=== PATIENT | male | born 1995 | race Caucasian/White ===

== ENCOUNTER 2018-02-02 18:18 | Emergency (ER) | payer OTHER ==
[~2018-02-02] VITALS: Ht 175.3 cm; Wt 103.4 kg
[2018-02-02 18:20] VITALS: BP 149/67
[2018-02-02] MEDS ORDERED: AMPICILLIN/SULBACTAM 3 GM in NACL 0.9% 100 ML IV ONE (19:45)
[2018-02-02] MEDS ORDERED: NACL 0.9% 1,000 ML IV ONE (19:45)
[2018-02-02] MEDS ORDERED: KETOROLAC 30 MG/ML VIAL IVP ONE (19:45)
[2018-02-02] MEDS ORDERED: AMPICILLIN/SULBACTAM 3 GM VIAL ONE (19:57)
[2018-02-02] MEDS ORDERED: cefTRIAXone 2,000 MG in DEXTROSE 5% 100 ML IV ONE (20:10)
[2018-02-02] MEDS ORDERED: cefTRIAXone 2,000 MG VIAL ONE (20:22)
[2018-02-02 21:53] VITALS: BP 139/71
== END 2018-02-02 21:53 | disposition home or self-care (01) ==
LOC: MED 18:18
DX: J02.9 Acute pharyngitis, unspecified (principal)
CPT/HCPCS: 70450; 96365; 96375; 99284; J0295; J0696; J1885; J7060

== ENCOUNTER 2018-05-22 11:49 | Emergency (ER) | payer OTHER ==
[~2018-05-22] VITALS: Ht 175.3 cm; Wt 99.8 kg
[2018-05-22 11:59] VITALS: BP 141/73
--- NOTE | 2018-05-22 11:59 | NUR ---
PT ABULATED TO BED 9
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
--- NOTE | 2018-05-22 12:14 | NUR ---
DR SANDOVAL AT BEDSIDE
[2018-05-22 12:37] VITALS: BP 132/68
--- NOTE | 2018-05-22 12:37 | NUR ---
Patient discharged with v/s stable. Written and verbal after care instructions given and explained. Patient alert, oriented and verbalized understanding of instructions. Ambulatory with steady gait. All questions addressed prior to discharge. ID band removed. Patient advised to follow up with PMD. Rx of KEFLEX, BACITRACIN (OTC) given. Patient educated on indication of medication including possible reaction and side effects. Opportunity to ask questions provided and answered.
== END 2018-05-22 12:37 | disposition home or self-care (01) ==
LOC: MED 11:49
DX: N47.3 Deficient foreskin (principal)
CPT/HCPCS: 99283

== ENCOUNTER 2019-01-06 17:29 | Emergency (ER) | payer SELFPAY ==
[~2019-01-06] VITALS: Ht 175.3 cm; Wt 102.1 kg
--- NOTE | 2019-01-06 17:44 | NUR ---
PT AMBULATED TO BED 06.
[2019-01-06 17:46] VITALS: BP 157/85
--- NOTE | 2019-01-06 17:46 | NUR ---
PT ARRIVED TO ED C/O CONSTIPATION, ABD PAIN X 4 DAYS. RATES PAIN LEVEL 8/10 AND DESCRIBES IT PRESSURE. ABD IS ROUND AND SOFT, ACTIVE BS IN ALL QUADS, AND TENDERNESS OVER THE BLADDER. PT STATES HE HAS N,V, AND DENIES FEVER. VSS. PMH: SZ ALLERGIES:AMOXICILLAN.
--- NOTE | 2019-01-06 18:06 | NUR ---
returned from radiology via
--- NOTE | 2019-01-06 18:07 | NUR ---
PT RETURNED FROM RADIOLOGY VIA [facility]
--- NOTE | 2019-01-06 19:06 | NUR ---
Patient discharged with v/s stable. Written and verbal after care instructions given and explained. Patient alert, oriented and verbalized understanding of instructions. Ambulatory with steady gait. All questions addressed prior to discharge. ID band removed. Patient advised to follow up with PMD. Rx of MAGNESIUM CITRATE given. Patient educated on indication of medication including possible reaction and side effects. Opportunity to ask questions provided and answered.
== END 2019-01-06 19:06 | disposition home or self-care (01) ==
LOC: MED 17:29
DX: K59.00 Constipation, unspecified (principal); F17.210 Nicotine dependence, cigarettes, uncomplicated; F12.90 Cannabis use, unspecified, uncomplicated
CPT/HCPCS: 74022; 99283

== ENCOUNTER 2021-11-18 14:09 | Emergency (ER) | payer SELFPAY ==
[~2021-11-18] VITALS: Ht 175.3 cm; Wt 101.7 kg
[2021-11-18 14:12] VITALS: BP 147/77
--- NOTE | 2021-11-18 14:28 | NUR ---
25 Y/O M BIB SELF C/O EPIGASTRIC PAIN 09/17 ABD N/V SINCE SATURDAY ON AND OFF. PER PT THE VOMITING TODAY STARTED AT 0700 AM TILL 1100 AM WITH BURNING AND PRESURE. PMH: SEIZURE
--- NOTE | 2021-11-18 14:41 | NUR ---
MEDICAL STUDENT AT BEDSIDE.
[2021-11-18] MEDS ORDERED: FAMOTIDINE 20 MG/2 ML VIAL IVP ONE (15:05)
[2021-11-18] MEDS ORDERED: ONDANSETRON 4 MG/2 ML VIAL IVP ONE (15:05)
[2021-11-18] MEDS ORDERED: NACL 0.9% 1,000 ML IV SCH (15:05)
[2021-11-18] MEDS ORDERED: ALUMINUM HYD/MAG/SIMETHICONE 30 ML UDC PO ONE (15:05)
--- NOTE | 2021-11-18 15:28 | NUR ---
X-RAY AT BEDSIDE.
[2021-11-18 15:41] LABS: BASOPHILS % (AUTO) 0.5 % (0.0-2.0); EOSINOPHILS # (AUTO) 0.2 K/uL (0-0.4); EOSINOPHILS % (AUTO) 3.2 % (0.0-4.0); HEMOGLOBIN 14.7 g/dL (12.0-18.0); LYMPHOCYTES # (AUTO) 1.7 K/uL (2.0-11.5); LYMPHOCYTES % (AUTO) 22.9 % (20.5-51.1); MEAN CORPUSCULAR HEMOGLOBIN 30 pg (27-31); MEAN CORPUSCULAR HGB CONC 34 g/dL (33-37); MEAN CORPUSCULAR VOLUME 88.1 fL (80-94); MONOCYTES # (AUTO) 0.7 K/uL (0.8-1.0); MONOCYTES % (AUTO) 9.2 % (1.7-9.3); NEUTROPHILS # (AUTO) 4.9 K/uL (1.8-7.7); NEUTROPHILS % (AUTO) 64.2 % (42.2-75.2); PLATELET COUNT (AUTO) 264 K/uL (140-450); RED BLOOD CELL COUNT(AUTO) 4.88 MIL/uL (4.20-6.10); RED CELL DISTRIBUTION WIDTH 13.1 % (11.6-13.7); WHITE BLOOD COUNT (AUTO) 7.6 K/uL (4.8-10.8)
[2021-11-18 15:58] LABS: ANION GAP 9.3 (8-16); CARBON DIOXIDE 30.6 mmol/L (21-32); POTASSIUM 3.9 mmol/L (3.5-5.1); TOTAL BILIRUBIN 0.2 mg/dL (0.0-1.0)
[2021-11-18] MEDS ORDERED: ALUM355S59 PO (16:29)
[2021-11-18] MEDS ORDERED: ONDA-188 PO (16:30)
--- NOTE | 2021-11-18 16:43 | NUR ---
Patient discharged with v/s stable. Written and verbal after care instructions given and explained. Patient alert, oriented and verbalized understanding of instructions. Ambulatory with steady gait. All questions addressed prior to discharge. ID band removed. Patient advised to follow up with PMD. Rx of MAG HYDROX/AL HYDROX/SIMETH, ONDANSETRON given. Opportunity to ask questions provided and answered.
--- NOTE | 2021-11-18 17:17 | NUR ---
The patient's care was reviewed and supervised by Tyra Burton RN.
== END 2021-11-18 16:43 | disposition home or self-care (01) ==
LOC: MED 14:09
DX: R10.9 Unspecified abdominal pain (principal)
CPT/HCPCS: 36415; 71045; 80053; 81002; 83690; 85025; 96361; 96374; 96375; 99284; J2405; J3490; J7030